=== PATIENT | female | born 1975 | race Caucasian/White ===

== ENCOUNTER → 2024-03-11 06:13 | Outpatient (REF) | payer OTHER, SELFPAY ==
[2024-03-11 09:46] LABS: % Basophils 0.8 % (0-2); % Eosinophils 2.8 % (0-6); % Immature Granulocytes 0.5 % (0-0.5); % Lymphocytes 23.7 % (20.5-51.1); % Monocytes 6.3 % (1.7-9.3); % Neutrophils 65.9 % (42.2-75.2); Absolute Basophils 0.1 10^3/uL (0-0.2); Absolute Eosinophils 0.2 10^3/uL (0-0.7); Absolute Lymphocytes 1.9 10^3/uL (1.2-3.4); Absolute Monocytes 0.5 10^3/uL (0.1-0.6); Absolute Neutrophils 5.1 10^3/uL (1.4-6.5); Hematocrit 33.8 % (37.0-47.0); Hemoglobin 10.5 g/dL (12.0-16.0); Mean Corp Hgb Conc. 31.1 g/dL (33.0-37.0); Mean Corpuscular Hgb 30.9 pg (27.0-31.0); Mean Corpuscular Volume 99.4 fL (81.0-99.0); Mean Platelet Volume 9.8 fL (7.4-10.4); Nucleated Red Blood Cells % 0 %; Platelet Count 295 10^3/uL (130-400); Red Cell Dist. Width 13.2 % (11.5-14.5); White Blood Cell Count 7.8 10^3/uL (4.8-10.8)
[2024-03-11 09:47] LABS: Urine Albumin Trace (Neg - Trace); Urine Bilirubin Negative (Negative); Urine Character Clear (Clear); Urine Color Yellow; Urine Glucose Negative (Negative); Urine Ketone Negative (Negative); Urine Leukocyte 2+ (Negative); Urine Nitrite Negative (Negative); Urine Occult Blood Negative (Negative); Urine Specific Gravity 1.005 (<1.030); Urine Urobilinogen Negative (Neg - 1+)
[2024-03-11 09:58] LABS: AST (SGOT) 23 U/L (14-36); Blood Urea Nitrogen 29 mg/dl (7-17); Carbon Dioxide 21 mmol/L (22-30); Glucose 88 mg/dl (70-99); Total Bilirubin 0.6 mg/dl (0.2-1.3); Total Cholesterol 277 mg/dl (50-199); Total Protein 6.8 g/dl (6.3-8.2); eGFR 26.65
[2024-03-11 10:04] LABS: Triglyceride 451 mg/dl (10-149)
[2024-03-11 10:06] LABS: ALT (SGPT) 11 U/L (0-35); Alkaline Phosphatase 127 U/L (38-126); Calcium 9.2 mg/dl (8.4-10.2); Chloride 109 mmol/L (98-107); HDL Cholesterol 57 mg/dl; Potassium 4.6 mmol/L (3.5-5.1); Sodium 142 mmol/L (135-145)
[2024-03-11 10:07] LABS: Urine Red Blood Cell 0-2 /HPF (0-2)
[2024-03-11 10:08] LABS: Urine Bacteria Few (Negative); Urine White Cell 80-90 /HPF (0-5)
[2024-03-11 10:24] LABS: TSH Reflex To Free T4 0.11 uIU/ml (0.47-4.68)
[2024-03-11 10:52] LABS: Free T4 0.98 ng/dl (0.78-2.19)
[2024-03-11 10:53] LABS: LDL Cholesterol, Direct 91 mg/dl
[2024-03-11 12:41] LABS: Microalbumin, Random Urine 18.2 mg/dl (0.6-1.7)
[2024-03-11 12:45] LABS: Microalbumin/creatinine Ratio 502.8 mg/g
== END ==
LOC: HWLAB 06:13
PROVIDERS: ATTENDING PHYSICIAN Nurse Practitioner Family
DX: N18.4 Chronic kidney disease, stage 4 (severe) (principal); E87.6 Hypokalemia; D64.9 Anemia, unspecified; R80.1 Persistent proteinuria, unspecified; F10.10 Alcohol abuse, uncomplicated
CPT/HCPCS: 36415; 80053; 80061; 81003; 81015; 82043; 82570; 83721; 84439; 84443; 85025

== ENCOUNTER → 2024-03-14 15:40 | Outpatient (REF) | payer OTHER, SELFPAY | LOC: RAD 15:40 | PROVIDERS: ATTENDING PHYSICIAN Nurse Practitioner Family | DX: M79.604 Pain in right leg (principal) | CPT/HCPCS: 93971 ==

== ENCOUNTER → 2024-05-04 16:20 | Outpatient (REF) | payer OTHER, SELFPAY | LOC: RAD 16:20 | PROVIDERS: ATTENDING PHYSICIAN Nurse Practitioner Family | DX: M79.605 Pain in left leg (principal); M79.671 Pain in right foot | CPT/HCPCS: 73630; 93971 ==

== ENCOUNTER → 2024-06-24 14:41 | Outpatient (REF) | payer OTHER, SELFPAY | LOC: RAD 14:41 | PROVIDERS: ATTENDING PHYSICIAN Nurse Practitioner Family | DX: N18.4 Chronic kidney disease, stage 4 (severe) (principal); M79.604 Pain in right leg; Z86.718 Personal history of other venous thrombosis and embolism | CPT/HCPCS: 93922; 93925 ==

== ENCOUNTER → 2024-07-08 06:22 | Outpatient (REF) | payer OTHER, SELFPAY ==
[2024-07-08 10:03] LABS: Urine Albumin 1+ (Neg - Trace); Urine Bilirubin Negative (Negative); Urine Character Clear (Clear); Urine Color Yellow; Urine Glucose Negative (Negative); Urine Ketone Negative (Negative); Urine Leukocyte 2+ (Negative); Urine Nitrite Negative (Negative); Urine Occult Blood Trace (Negative); Urine Urobilinogen Negative (Neg - 1+)
[2024-07-08 10:14] LABS: Urine Squamous Cell >30 /LPF (Few)
[2024-07-08 10:15] LABS: Urine Bacteria Moderate (Negative); Urine White Cell >100 /HPF (0-5)
[2024-07-08 10:16] LABS: Urine Red Blood Cell 0-2 /HPF (0-2)
== END ==
LOC: HWLAB 06:22
PROVIDERS: ATTENDING PHYSICIAN Obstetrics & Gynecology; FAMILY PHYSICIAN Nurse Practitioner Family
DX: N39.0 Urinary tract infection, site not specified (principal)
CPT/HCPCS: 81003; 81015; 87077; 87086; 87186

== ENCOUNTER → 2024-08-01 09:33 | Outpatient (REF) | payer OTHER, SELFPAY ==
[2024-08-01 12:17] LABS: Urine Albumin Trace (Neg - Trace); Urine Bilirubin Negative (Negative); Urine Character Clear (Clear); Urine Color Yellow; Urine Glucose Negative (Negative); Urine Ketone Negative (Negative); Urine Leukocyte Negative (Negative); Urine Nitrite Negative (Negative); Urine Occult Blood Negative (Negative); Urine Urobilinogen Negative (Neg - 1+)
== END ==
LOC: HWLAB 09:33
PROVIDERS: ATTENDING PHYSICIAN Obstetrics & Gynecology; FAMILY PHYSICIAN Nurse Practitioner Family
DX: N39.0 Urinary tract infection, site not specified (principal)
CPT/HCPCS: 36415; 81003; 87077; 87086

== ENCOUNTER 2024-08-29 17:38 | Outpatient (RCR) | payer OTHER, SELFPAY | END 2024-08-29 23:59 | disposition home or self-care (01) | LOC: CRHB 17:38 | PROVIDERS: ATTENDING PHYSICIAN Surgery Vascular Surgery; FAMILY PHYSICIAN Nurse Practitioner Family | DX: I70.211 Atherosclerosis of native arteries of extremities with intermittent claudication, right leg (principal) | CPT/HCPCS: 93668 ==

== ENCOUNTER → 2025-06-20 11:04 | Outpatient (REF) | payer BC, SELFPAY ==
[2025-06-20 16:02] LABS: Urine Character Slightly Cloudy (Clear)
[2025-06-20 16:49] LABS: Urine Squamous Cell >30 /LPF (Few)
[2025-06-20 16:50] LABS: Urine Red Blood Cell 0-2 /HPF (0-2); Urine White Cell 90-100 /HPF (0-5)
== END ==
LOC: HWLAB 11:04
PROVIDERS: ATTENDING PHYSICIAN Obstetrics & Gynecology; FAMILY PHYSICIAN Family Medicine
DX: N39.0 Urinary tract infection, site not specified (principal)
CPT/HCPCS: 81003; 81015; 87077; 87086; 87186

== ENCOUNTER → 2025-06-23 13:38 | Outpatient (REF) | payer BC, SELFPAY | LOC: HWRAD 13:38 | PROVIDERS: ATTENDING PHYSICIAN Family Medicine | DX: M54.6 Pain in thoracic spine (principal) | CPT/HCPCS: 72072 ==

== ENCOUNTER → 2025-06-26 10:04 | Outpatient (REF) | payer BC, SELFPAY | LOC: HWRAD 10:04 | PROVIDERS: ATTENDING PHYSICIAN Obstetrics & Gynecology; FAMILY PHYSICIAN Family Medicine | DX: N39.0 Urinary tract infection, site not specified (principal) | CPT/HCPCS: 76770 ==

== ENCOUNTER → 2025-07-31 10:58 | Outpatient (REF) | payer BC, SELFPAY ==
[2025-07-31 12:31] LABS: Urine Character Cloudy (Clear)
[2025-07-31 12:45] LABS: Urine Squamous Cell >30 /LPF (Few)
[2025-07-31 12:46] LABS: Urine White Cell 30-40 /HPF (0-5)
== END ==
LOC: HWLAB 10:58
PROVIDERS: ATTENDING PHYSICIAN Obstetrics & Gynecology; FAMILY PHYSICIAN Family Medicine
DX: N39.0 Urinary tract infection, site not specified (principal)
CPT/HCPCS: 81003; 81015; 87077; 87086; 87186